=== PATIENT | male | born 1990 | race Caucasian/White ===

== ENCOUNTER 2017-05-03 13:40 | Emergency (ER) | payer SELFPAY ==
[~2017-05-03] VITALS: Ht 182.9 cm; Wt 120.1 kg
[2017-05-03 14:43] VITALS: BP 159/76; PULSE 87; RESP 16; TEMP 98.4; O2SAT 99
[2017-05-03] MEDS ORDERED: CEPH250S PO (16:24)
[2017-05-03] MEDS ORDERED: SULF20OR2 PO (16:24)
[2017-05-03] MEDS ORDERED: CEPHALEXIN MONOHYDRATE SUSP 250 MG/5 ML 100 ML BTL PO ONE (16:30)
[2017-05-03] MEDS ORDERED: TETANUS/DIPHTHERIA TOXOID ADULT 0.5 ML VIAL IM ONE (16:30)
[2017-05-03] MEDS ORDERED: SULFAMETHOXAZOLE-TRIMETHOPRIM 800-160 MG/20 ML UDC PO ONE (16:30)
--- NOTE | 2017-05-03 16:40 | PD ---
HPI Chief Complaint: Skin Problem Time Seen by Provider: 16:14 Travel History International Travel<30 days: No Contact w/Intl Traveler<30days: No Traveled to known affect area: No History of Present Illness HPI 26-year-old male that presents to the ED for evaluation of left leg insect bite. Per patient he believes he got bit by a spider. Per patient his been having swelling and purulence from it. He states that his been going on for 8 days. His been doing wound care with minimal relief. Per patient he was bigger when it started getting smaller. He is concerned because he is not getting better. No allergies to medication. Unclear of his last tetanus shot. He did not see anything bite him. Neurovascularly intact. PFSH Past Medical History Tetanus Vaccination: > 5 Years Influenza Vaccination: No Past Surgical History Surgical History: No Previous Surgery Social History Alcohol Use: Yes (occ) Tobacco Use: No Substance Use: No Allergies-Medications (Allergen,Severity, Reaction): Coded Allergies: No Known Allergies (Unverified , 05/03/17) Reported Meds & Prescriptions Reported Meds & Active Scripts Active Keflex (Cephalexin) 500 Mg Capsule 500 Mg PO Q6H 10 Days Bactrim DS (Sulfamethoxazole-Trimethoprim) 800-160 Mg Tab 1 Tab PO BID 10 Days Cephalexin Liq (Cephalexin Monohydrate) 250 Mg/5 Ml Susp 500 Mg PO Q6H 10 Days Sulfamethoxazole-Trimethoprim Liq 200-40 Mg/5 Ml Susp 20 Ml PO Q12H 10 Days Review of Systems Except as stated in HPI: all other systems reviewed are Neg Physical Exam Narrative GENERAL: SKIN: Warm and dry. Patient has an area of erythema with purulence noted on the lateral left calf. About 2 cm in diameter. Patient has a small opening about half centimeter with purulence noted. Tenderness to palpation. No lymphadenopathy. HEAD: Atraumatic. Normocephalic. EYES: Pupils equal and round. No scleral icterus. No injection or drainage. ENT: No nasal bleeding or discharge. Mucous membranes pink and moist. Tongue is midline. No uvula deviation. NECK: Trachea midline. No JVD. CARDIOVASCULAR: Regular rate and rhythm. RESPIRATORY: No accessory muscle use. Clear to auscultation. Breath sounds equal bilaterally. GASTROINTESTINAL: Abdomen soft, non-tender, nondistended. Hepatic and splenic margins not palpable. MUSCULOSKELETAL: Extremities without clubbing, cyanosis, or edema. No obvious deformities. NEUROLOGICAL: Awake and alert. No obvious cranial nerve deficits. Motor grossly within normal limits. Five out of 5 muscle strength in the arms and legs. Normal speech. PSYCHIATRIC: Appropriate mood and affect; insight and judgment normal. Data Data Last Documented VS Vital Signs Date Time Temp Pulse Resp B/P (MAP) Pulse Ox O2 Delivery O2 Flow Rate FiO2 05/03/17 14:43 98.4 87 16 159/76 (103) 99 Orders Orders Sulfamet-Trimet 800-160 Mg Liq (Bactrim (05/03/17 16:30) Cephalexin 250 Mg/5 Ml Liq (Keflex 250 M (05/03/17 16:30) Wound Culture And Gram Stain (05/03/17 16:24) Wound Care (05/03/17 16:24) Tetanus/Diphtheria Tox Adult (Tetanus/Di (05/03/17 16:30) MDM Medical Decision Making Medical Screen Exam Complete: Yes Emergency Medical Condition: Yes Medical Record Reviewed: Yes Differential Diagnosis Abscesses versus cellulitis versus insect bite Narrative Course 26-year-old male that presents to the ED for evaluation of abscess to the left leg. Patient was properly examined and was found to have signs and symptoms consistent appears to be abscess. Culture was taken from the wound. Patient avidly has a draining and I do not recommend more incision and drainage. At this time I believe patient of course antibiotics. Patient was given liquid antibiotic at his request. Told to follow up with PCP. Recheck in 48 hours if not better. See ED worsening symptoms. Given tetanus booster here. Diagnosis Primary Impression: Abscess Patient Instructions: General Instructions Additional Instructions: Take medication as prescribed. Motrin or Tylenol for pain. Change dressings daily. See ED worsening symptoms. Warm compresses as needed. Med/Other Pt SpecificInfo: Prescription(s) given Scripts Cephalexin (Keflex) 500 Mg Capsule 500 MG PO Q6H for Infection for 10 Days, CAP 0 Refills Prov: Juve Cantu MD 05/03/17 Sulfamethoxazole-Trimethoprim (Bactrim DS) 800-160 Mg Tab 1 TAB PO BID for Infection for 10 Days, TAB 0 Refills Prov: Juve Cantu MD 05/03/17 Cephalexin Liq (Cephalexin Liq) 250 Mg/5 Ml Susp 500 MG PO Q6H for Infection for 10 Days, ML 0 Refills Prov: Juve Cantu MD 05/03/17 Sulfamethoxazole-Trimethoprim Liq (Sulfamethoxazole-Trimethoprim Liq) 200-40 Mg/ 5 Ml Susp 20 ML PO Q12H for Infection for 10 Days, ML 0 Refills Prov: Juve Cantu MD 05/03/17 Disposition: 01 DISCHARGE HOME Condition: Stable Pro Dejesus May 03, 2017 16:40
[2017-05-03] MEDS ORDERED: CEPH-460 PO (16:51)
[2017-05-03] MEDS ORDERED: BACT800T5 PO (16:51)
== END 2017-05-03 17:15 | disposition home or self-care (01) ==
LOC: PHEFT 13:40
DX: L02.416 Cutaneous abscess of left lower limb (principal); W57.XXXA Bitten or stung by nonvenomous insect and other nonvenomous arthropods, initial encounter; B95.62 Methicillin resistant Staphylococcus aureus infection as the cause of diseases classified elsewhere
CPT/HCPCS: 86403; 87070; 87186; 87205; 90471; 90714